=== PATIENT | female | born 1965 | race Caucasian/White ===

== ENCOUNTER 2018-12-22 16:32 | Emergency (ER) | payer MEDICAID ==
[2018-12-22 17:14] LABS: #Eosinphils 0.1 thou/uL (0.0-0.7); #Lymphocytes 1.2 thou/uL (1.20-3.40); #Monocytes 0.6 thou/uL (0.11-0.59); #Neutrophils 4.3 thou/uL (1.40-6.50); %Basophils 0.6 % (0.0-1.0); %Eosinophils 1.5 % (0.0-10.0); %Lymphocytes 19.3 % (21.0-51.0); %Monocytes 9.4 % (0.0-10.0); %Neutrophils 69.1 % (42.0-75.0); Hemoglobin 12.6 g/dL (12.0-16.0); Mean Corpuscular HGB CONC 30.3 g/dL (32.0-36.0); Mean Corpuscular Hemoglobin 27.9 pg (27.0-31.0); Mean Corpuscular Volume 92.3 fL (78.0-98.0); Mean Platelet Volume 6.6 fL (7.4-10.4); Platelet Count 161 thou/uL (130-400); White Blood Cell (WBC) Count 6.2 thou/uL (4.8-10.8)
[2018-12-22 17:35] LABS: ALT (SGPT) 15 U/L (8-55); AST (SGOT) 12 U/L (5-34); Albumin 3.9 g/dL (3.5-5.0); Alkaline Phosphatase 140 U/L (40-150); Anion Gap 15 mmol/L (10-20); BUN (Urea Nitrogen) 10 mg/dL (9.8-20.1); Bilirubin, Total 0.6 mg/dL (0.2-1.2); Calc. Creatinine Clearance 0 mL/min (70-130); Calcium 9.4 mg/dL (7.8-10.44); Carbon Dioxide 34 mmol/L (22-29); Chloride 97 mmol/L (98-107); Estimated GFR-MDRD 86; Glucose 75 mg/dL (70-105); Potassium 4.8 mmol/L (3.5-5.1); Protein, Total 6.9 g/dL (6.0-8.3); Sodium 141 mmol/L (136-145)
--- NOTE | 2018-12-22 17:55 | RAD ---
Exam: Chest one view HISTORY:Dyspnea Comparison: 01/28/2014 FINDINGS: Cardiac silhouette:Cardiomegaly Pulmonary vessels: Slightly prominent Costophrenic angles: Clear LUNGS: Patchy interstitial opacities. Elevation the right hemidiaphragm. Pneumothorax: None Osseous abnormalities: None IMPRESSION: 1. Cardiomegaly. Pulmonary vascular prominence. Correlate for congestive heart failure. 2. Elevation the right hemidiaphragm. Finding is unchanged when compared to the previous exam.
[2018-12-22] MEDS ORDERED: Furosemide 40 MG/4 ML VIAL ONE (19:08)
[2018-12-22] MEDS ORDERED: Azithromycin 250 MG TAB ONE (19:08)
[2018-12-22] MEDS ORDERED: methylPREDNISolone Sod Succ/PF 125 MG/2 ML VIAL ONE (19:08)
== END 2018-12-22 20:52 | disposition short-term general hospital (02) ==
LOC: MADERS 16:32
DX: I11.0 Hypertensive heart disease with heart failure (principal); I50.9 Heart failure, unspecified; J44.9 Chronic obstructive pulmonary disease, unspecified; E03.9 Hypothyroidism, unspecified; K21.9 Gastro-esophageal reflux disease without esophagitis; G43.909 Migraine, unspecified, not intractable, without status migrainosus; F41.9 Anxiety disorder, unspecified; Z87.891 Personal history of nicotine dependence; Z79.899 Other long term (current) drug therapy; Z79.84 Long term (current) use of oral hypoglycemic drugs
CPT/HCPCS: 36415; 71045; 80053; 83880; 84484; 85025; 93005; 96374; 96375; J1940; J2930; J7620

== ENCOUNTER 2019-05-30 15:58 | Emergency (ER) | payer MEDICAID, OTHER ==
--- NOTE | 2019-05-30 16:40 | RAD ---
XR Chest Pa Lat STANDARD HISTORY: Chest pain COMPARISON: 12/22/2018 FINDINGS: The heart size is enlarged. There is continued elevation the right hemidiaphragm. There is mild prominence of the pulmonary vascularity. No lobar consolidation, pneumothoraces or pleural effusions are seen. There are degenerative changes in the spine.
== END 2019-05-30 17:15 | disposition home or self-care (01) ==
LOC: MADERS 15:58
DX: S29.011A Strain of muscle and tendon of front wall of thorax, initial encounter (principal); E11.9 Type 2 diabetes mellitus without complications; E03.9 Hypothyroidism, unspecified; K21.9 Gastro-esophageal reflux disease without esophagitis; E78.5 Hyperlipidemia, unspecified; I10 Essential (primary) hypertension; F41.9 Anxiety disorder, unspecified; Z87.891 Personal history of nicotine dependence; Z79.899 Other long term (current) drug therapy; Z79.84 Long term (current) use of oral hypoglycemic drugs; V49.9XXA Car occupant (driver) (passenger) injured in unspecified traffic accident, initial encounter
CPT/HCPCS: 71046; 93005